=== PATIENT | male | born 1965 | race Hispanic/Latino ===

== ENCOUNTER 2017-03-12 11:24 | Emergency (ER) | payer OTHER | END 2017-03-12 11:48 | disposition home or self-care (01) | LOC: MADERS 11:24 | DX: M54.5 Low back pain (principal) | CPT/HCPCS: 99283 ==

== ENCOUNTER 2021-09-10 12:19 | Emergency (ER) | payer OTHER ==
[2021-09-10] MEDS ORDERED: Lidocaine 2% 20 ml MDV ONE (12:53)
[2021-09-10] MEDS ORDERED: Bacitracin 1 PK ONE (12:54)
== END 2021-09-10 13:42 | disposition home or self-care (01) ==
LOC: MADERS 12:19
DX: S61.312A Laceration without foreign body of right middle finger with damage to nail, initial encounter (principal); W23.0XXA Caught, crushed, jammed, or pinched between moving objects, initial encounter
CPT/HCPCS: 12002